=== PATIENT | male | born 1945 | race Caucasian/White ===

== ENCOUNTER 2018-03-10 22:44 | Inpatient (IN) | payer MEDICARE, OTHER ==
[~2018-03-10] VITALS: Ht 177.8 cm; Wt 125.8 kg
[2018-03-10] MEDS ORDERED: diltiazem 5mg/ml 5ml inj. IV ONE (23:05)
[2018-03-10] MEDS ORDERED: aspirin 81mg tab.chew PO ONE (23:05)
[2018-03-10 23:10] LABS: BASOPHILS # (AUTO) 0.1 X10'3 (0-0.2); BASOPHILS % (AUTO) 0.8 % (0-1); EOSINOPHILS # (AUTO) 0.2 X10'3 (0-0.9); EOSINOPHILS % (AUTO) 2.2 % (0-6); HEMATOCRIT 39.6 % (42.0-52.0); LYMPHOCYTES # (AUTO) 1.6 X10'3 (1.1-4.8); LYMPHOCYTES % (AUTO) 21.4 % (21-51); MEAN CORPUSCULAR HGB CONC 32.8 % (33.0-36.5); MEAN CORPUSCULAR VOLUME 91.8 FL (78-98); MONOCYTES # (AUTO) 0.4 X10'3 (0-0.9); MONOCYTES % (AUTO) 5.4 % (2-12); NEUTROPHILS # (AUTO) 5.3 X10'3 (1.8-7.7); NEUTROPHILS % (AUTO) 70.2 % (42-75); PLATELET COUNT 263 X10'3 (140-440); RED BLOOD COUNT 4.31 X10'6 (4.70-6.10); RED CELL DISTRIBUTION WIDTH 14.5 % (11.5-14.5); WHITE BLOOD COUNT 7.6 X10'3 (4.5-11.0)
[2018-03-10 23:19] LABS: D-DIMER 1.05 MG/L FEU (0-0.50); INR 1.1 INR; PARTIAL THROMBOPLASTIN TIME 25 SECONDS (22-32); PROTHROMBIN TIME 11.2 SECONDS (9.0-12.0)
[2018-03-10 23:20] LABS: ALANINE AMINOTRANSFERASE 28 U/L (12-78); ALBUMIN 3.2 G/DL (3.4-5.0); ALBUMIN/GLOBULIN RATIO 0.8 (1.1-1.5); ALKALINE PHOSPHATASE 60 IU/L (46-116); ANION GAP 6 (8-16); ASPARTATE AMINO TRANSFERASE 14 U/L (10-37); BILIRUBIN,TOTAL 0.4 MG/DL (0.1-1.0); BLOOD UREA NITROGEN 24 MG/DL (7-18); BUN/CREATININE RATIO 16.8 (5.4-32.0); CALCIUM 8.8 MG/DL (8.5-10.1); CHLORIDE 105 MMOL/L (99-107); CREATININE 1.43 MG/DL (0.60-1.10); GLUCOSE 130 MG/DL (70-104); POTASSIUM 3.8 MMOL/L (3.5-5.1); SODIUM 140 MMOL/L (135-145); TOTAL CARBON DIOXIDE 29.4 MMOL/L (24-32); TOTAL PROTEIN 7.1 G/DL (6.4-8.2); eGFR 49 ML/MIN
[2018-03-10] MEDS ORDERED: iohexol 350MG/ML 100ml bottle IV ONE (23:45)
[2018-03-11] VITALS (14 sets, daily range): BP systolic 131–178; BP diastolic 81–138
[2018-03-11] MEDS ORDERED: TEST200V10 IM (00:17)
[2018-03-11] MEDS ORDERED: PIOG45TA19 PO (00:17)
[2018-03-11] MEDS ORDERED: CELE-193 PO (00:17)
[2018-03-11] MEDS ORDERED: ASPI-1265 PO (00:17)
[2018-03-11] MEDS ORDERED: GLUC-131 PO (00:17)
[2018-03-11] MEDS ORDERED: MULT-933 PO (00:17)
[2018-03-11] MEDS ORDERED: SYN0.088T PO (00:17)
[2018-03-11] MEDS ORDERED: OMEP40CA37 PO (00:17)
[2018-03-11] MEDS ORDERED: LACT1CAP65 PO (00:17)
[2018-03-11] MEDS ORDERED: DOCU-28 PO (00:17)
[2018-03-11] MEDS ORDERED: ATOR40TA PO (00:17)
[2018-03-11] MEDS ORDERED: NITR100C6 PO (00:17)
[2018-03-11] MEDS ORDERED: CHOL100044 PO (00:17)
[2018-03-11] MEDS ORDERED: TRAM50TA2 PO (00:17)
[2018-03-11] MEDS ORDERED: diltiazem 5mg/ml 5ml inj. IV ONE (00:35)
[2018-03-11] MEDS ORDERED: diltiazem-NS 100mg/100ml 100 ML IV ONE (00:35)
[2018-03-11] MEDS ORDERED: potassium Cl 40MEQ/NS 500ml 500 ML IV PRN ×2 (01:40)
[2018-03-11] MEDS ORDERED: ondansetron/PF 4mg/2ml inj IV PRN (01:40)
[2018-03-11] MEDS ORDERED: magnesium Cl slow-release 64mg tablet PO PRN (01:40)
[2018-03-11] MEDS ORDERED: potassium Cl 20 mEq SR tablet PO PRN ×2 (01:40)
[2018-03-11] MEDS ORDERED: magnesium 1gm/100ml D5W IVPB 100 ML IV PRN (01:40)
[2018-03-11] MEDS ORDERED: magnesium 4gm in 100ml NS 100 ML IV PRN (01:40)
[2018-03-11] MEDS ORDERED: acetaminophen 325mg tablet PO PRN (01:40)
[2018-03-11] MEDS ORDERED: diltiazem-NS 100mg/100ml 100 ML IV SCH (01:40)
[2018-03-11 02:11] LABS: ETHANOL < 0.010 GM/DL (0.0-0.010)
[2018-03-11] MEDS ORDERED: dextrose ORAL solution 15 GM/59 ML bottle PO PRN ×2 (03:05)
[2018-03-11] MEDS ORDERED: diltiazem 30mg tablet PO ONE (03:05)
[2018-03-11] MEDS ORDERED: insulin Lispro (HumaLOG) vial - multi-dose SQ SCH (03:05)
[2018-03-11] MEDS ORDERED: dextrose 50%-water 50ml dispensing syringe IV PRN ×2 (03:05)
[2018-03-11] MEDS ORDERED: MESSAGE TO PHARMACY PO ONE (03:05)
[2018-03-11] MEDS ORDERED: glucagon, human recombinant 1mg kit SUBCUT PRN (03:05)
[2018-03-11] MEDS: normal saline 1000ml 1,000 ML IV SCH (03:41)
[2018-03-11] MEDS: diltiazem-NS 100mg/100ml 100 ML IV SCH ×3 (03:42→16:24)
[2018-03-11] MEDS: diltiazem 30mg tablet PO SCH ×3 (07:20→21:35)
[2018-03-11] MEDS: heparin, porcine 5000 units/ml vial SQ SCH ×2 (07:21→21:36)
[2018-03-11] MEDS: K and/or MAG REPLACEMENT MC SCH (08:00)
[2018-03-11] MEDS ORDERED: heparin, porcine 5000 units/ml vial SQ SCH (08:00)
[2018-03-11] MEDS: sotalol 80mg tablet PO SCH ×2 (11:37→21:35)
[2018-03-11] MEDS ORDERED: pioglitazone 45mg tablet PO SCH (11:55)
[2018-03-11] MEDS ORDERED: levoTHYROXINE 88mcg tablet PO SCH (11:55)
[2018-03-11] MEDS: furosemide 20 MG/2 ML vial IV SCH ×2 (12:08→21:36)
[2018-03-11] MEDS: aspirin 81mg tab.chew PO SCH (12:09)
[2018-03-11] MEDS: traMADol 50MG tablet PO PRN (12:09)
[2018-03-11] MEDS ORDERED: LEVO125T PO (12:17)
[2018-03-11] MEDS: potassium Cl 20 mEq SR tablet PO SCH (12:51)
[2018-03-11] MEDS: levoTHYROXINE 125mcg tablet PO SCH (12:52)
[2018-03-11] MEDS: nitrofuran/nitrofuran macrocrysal 100 MG capsule PO SCH (12:52)
[2018-03-11] MEDS: insulin glargine (Lantus) pen - multi-dose SQ SCH (21:00)
[2018-03-11] MEDS: Melatonin 3mg tablet PO PRN (23:17)
[2018-03-12] MEDS: diltiazem 30mg tablet PO SCH (02:20)
[2018-03-12 03:00] VITALS: BP 118/89
[2018-03-12 06:00] VITALS: BP 142/86
[2018-03-12 06:27] LABS: BASOPHILS # (AUTO) 0.1 X10'3 (0-0.2); BASOPHILS % (AUTO) 0.8 % (0-1); EOSINOPHILS # (AUTO) 0.2 X10'3 (0-0.9); EOSINOPHILS % (AUTO) 2.5 % (0-6); HEMATOCRIT 34.5 % (42.0-52.0); HEMOGLOBIN 11.5 g/dl (14.0-17.9); LYMPHOCYTES % (AUTO) 14.9 % (21-51); MEAN CORPUSCULAR HEMOGLOBIN 30.5 PG (27.0-31.0); MEAN CORPUSCULAR HGB CONC 33.3 % (33.0-36.5); MEAN CORPUSCULAR VOLUME 91.7 FL (78-98); MEAN PLATELET VOLUME 7.6 FL (7.4-10.4); MONOCYTES # (AUTO) 0.6 X10'3 (0-0.9); MONOCYTES % (AUTO) 8.1 % (2-12); NEUTROPHILS # (AUTO) 5.1 X10'3 (1.8-7.7); NEUTROPHILS % (AUTO) 73.7 % (42-75); PLATELET COUNT 228 X10'3 (140-440); RED BLOOD COUNT 3.76 X10'6 (4.70-6.10); RED CELL DISTRIBUTION WIDTH 15.2 % (11.5-14.5); WHITE BLOOD COUNT 6.9 X10'3 (4.5-11.0)
[2018-03-12 06:33] LABS: ALBUMIN 2.8 G/DL (3.4-5.0); ANION GAP 5 (8-16); BLOOD UREA NITROGEN 22 MG/DL (7-18); BUN/CREATININE RATIO 15.3 (5.4-32.0); CALCIUM 8.6 MG/DL (8.5-10.1); CHLORIDE 104 MMOL/L (99-107); CREATININE 1.44 MG/DL (0.60-1.10); GLUCOSE 122 MG/DL (70-104); MAGNESIUM 2.1 MG/DL (1.5-2.4); POTASSIUM 3.9 MMOL/L (3.5-5.1); SODIUM 137 MMOL/L (135-145); TOTAL CARBON DIOXIDE 28.1 MMOL/L (24-32); eGFR 48 ML/MIN
[2018-03-12] MEDS ORDERED: diltiazem CD 120mg capsule (once-daily) PO SCH (08:00)
[2018-03-12] MEDS: K and/or MAG REPLACEMENT MC SCH (08:00)
[2018-03-12] MEDS: celeCOXIB 100mg capsule PO SCH (08:06)
[2018-03-12] MEDS: aspirin 81mg tab.chew PO SCH (08:07)
[2018-03-12] MEDS: vitamin D (cholecalciferol) 1,000 unit tablet PO SCH (08:07)
[2018-03-12] MEDS: docusate sod 100mg capsule PO SCH (08:08)
[2018-03-12] MEDS: atorvastatin 20mg tablet PO SCH (08:08)
[2018-03-12] MEDS: furosemide 20 MG/2 ML vial IV SCH ×2 (08:09→20:01)
[2018-03-12] MEDS: heparin, porcine 5000 units/ml vial SQ SCH (08:10)
[2018-03-12] MEDS: sotalol 80mg tablet PO SCH ×2 (08:14→20:02)
[2018-03-12] MEDS: levoTHYROXINE 125mcg tablet PO SCH (08:15)
[2018-03-12] MEDS: traMADol 50MG tablet PO PRN (08:15)
[2018-03-12] MEDS: pantoprazole 40mg Tablet.DR PO SCH (08:15)
[2018-03-12] MEDS: potassium Cl 20 mEq SR tablet PO SCH (08:15)
[2018-03-12] MEDS: nitrofuran/nitrofuran macrocrysal 100 MG capsule PO SCH (08:16)
[2018-03-12] MEDS ORDERED: diltiazem CD 120mg capsule (once-daily) PO ONE (08:45)
[2018-03-12 11:00] VITALS: BP 130/92
[2018-03-12 15:00] VITALS: BP 139/83
[2018-03-12 19:00] VITALS: BP 137/74
[2018-03-12] MEDS: apixaban 5mg tablet PO SCH (20:02)
[2018-03-12] MEDS: insulin glargine (Lantus) pen - multi-dose SQ SCH (21:00)
[2018-03-12] MEDS: Melatonin 3mg tablet PO PRN (21:15)
[2018-03-12 23:00] VITALS: BP 151/87
[2018-03-13] MEDS: normal saline 1000ml 1,000 ML IV SCH (00:40)
[2018-03-13 03:00] VITALS: BP 142/96
[2018-03-13 06:00] VITALS: BP 136/78
[2018-03-13 06:29] LABS: BASOPHILS # (AUTO) 0.1 X10'3 (0-0.2); BASOPHILS % (AUTO) 1.1 % (0-1); EOSINOPHILS # (AUTO) 0.2 X10'3 (0-0.9); EOSINOPHILS % (AUTO) 4.3 % (0-6); HEMATOCRIT 37.7 % (42.0-52.0); HEMOGLOBIN 12.6 g/dl (14.0-17.9); LYMPHOCYTES # (AUTO) 1.3 X10'3 (1.1-4.8); LYMPHOCYTES % (AUTO) 23.5 % (21-51); MEAN CORPUSCULAR HEMOGLOBIN 30.4 PG (27.0-31.0); MEAN CORPUSCULAR HGB CONC 33.4 % (33.0-36.5); MEAN CORPUSCULAR VOLUME 91.1 FL (78-98); MEAN PLATELET VOLUME 7.8 FL (7.4-10.4); MONOCYTES # (AUTO) 0.6 X10'3 (0-0.9); MONOCYTES % (AUTO) 9.7 % (2-12); NEUTROPHILS # (AUTO) 3.5 X10'3 (1.8-7.7); NEUTROPHILS % (AUTO) 61.4 % (42-75); PLATELET COUNT 248 X10'3 (140-440); RED BLOOD COUNT 4.14 X10'6 (4.70-6.10); RED CELL DISTRIBUTION WIDTH 14.8 % (11.5-14.5); WHITE BLOOD COUNT 5.7 X10'3 (4.5-11.0)
[2018-03-13 06:50] LABS: ALBUMIN 2.9 G/DL (3.4-5.0); ANION GAP 8 (8-16); BLOOD UREA NITROGEN 28 MG/DL (7-18); CALCIUM 8.6 MG/DL (8.5-10.1); CHLORIDE 104 MMOL/L (99-107); CREATININE 1.47 MG/DL (0.60-1.10); GLUCOSE 100 MG/DL (70-104); MAGNESIUM 2.2 MG/DL (1.5-2.4); SODIUM 139 MMOL/L (135-145); TOTAL CARBON DIOXIDE 27.5 MMOL/L (24-32); eGFR 47 ML/MIN
[2018-03-13] MEDS: K and/or MAG REPLACEMENT MC SCH (07:43)
[2018-03-13] MEDS: celeCOXIB 100mg capsule PO SCH (07:53)
[2018-03-13] MEDS: apixaban 5mg tablet PO SCH (07:54)
[2018-03-13] MEDS: potassium Cl 20 mEq SR tablet PO SCH (07:54)
[2018-03-13] MEDS: atorvastatin 20mg tablet PO SCH (07:54)
[2018-03-13] MEDS: levoTHYROXINE 125mcg tablet PO SCH (07:54)
[2018-03-13] MEDS: docusate sod 100mg capsule PO SCH (07:54)
[2018-03-13] MEDS: sotalol 80mg tablet PO SCH (07:54)
[2018-03-13] MEDS: nitrofuran/nitrofuran macrocrysal 100 MG capsule PO SCH (07:54)
[2018-03-13] MEDS: vitamin D (cholecalciferol) 1,000 unit tablet PO SCH (07:54)
[2018-03-13] MEDS: pantoprazole 40mg Tablet.DR PO SCH (07:54)
[2018-03-13] MEDS: aspirin 81mg tab.chew PO SCH (07:54)
[2018-03-13] MEDS: furosemide 20 MG/2 ML vial IV SCH (07:55)
[2018-03-13] MEDS ORDERED: diltiazem CD 120mg capsule (once-daily) PO SCH (08:00)
[2018-03-13] MEDS: traMADol 50MG tablet PO PRN (08:09)
[2018-03-13 11:00] VITALS: BP 136/95
[2018-03-13] MEDS ORDERED: CARCD120C PO (12:09)
[2018-03-13] MEDS ORDERED: POTA20TA19 PO (12:09)
[2018-03-13] MEDS ORDERED: SOTA80TA73 PO (12:09)
[2018-03-13] MEDS ORDERED: APIX5TAB3 PO (12:09)
[2018-03-13] MEDS ORDERED: FURO-149 PO (12:09)
== END 2018-03-13 14:25 | disposition home or self-care (01) | DRG 682 ==
LOC: ER 22:45 → ED HOLD 03-11 01:38 → PCU 3S 03-11 03:00
PROVIDERS: ADMIT Internal Medicine; ATTEND Family Medicine
PROC: B32T1ZZ Computerized Tomography (CT Scan) of Left Pulmonary Artery using Low Osmolar Contrast (ICD-10-PCS; principal; 2018-03-10)
PROC: B3201ZZ Computerized Tomography (CT Scan) of Thoracic Aorta using Low Osmolar Contrast (ICD-10-PCS; 2018-03-10)
PROC: B32S1ZZ Computerized Tomography (CT Scan) of Right Pulmonary Artery using Low Osmolar Contrast (ICD-10-PCS; 2018-03-10)
DX: N17.9 Acute kidney failure, unspecified (principal); I50.33 Acute on chronic diastolic (congestive) heart failure; I13.0 Hypertensive heart and chronic kidney disease with heart failure and stage 1 through stage 4 chronic kidney disease, or unspecified chronic kidney disease; I48.91 Unspecified atrial fibrillation; E03.9 Hypothyroidism, unspecified; K21.9 Gastro-esophageal reflux disease without esophagitis; M54.9 Dorsalgia, unspecified; R33.9 Retention of urine, unspecified; E78.5 Hyperlipidemia, unspecified; E11.22 Type 2 diabetes mellitus with diabetic chronic kidney disease; G89.29 Other chronic pain; N18.9 Chronic kidney disease, unspecified; Z88.5 Allergy status to narcotic agent; Z79.01 Long term (current) use of anticoagulants; Z79.82 Long term (current) use of aspirin; Z79.899 Other long term (current) drug therapy; Z87.891 Personal history of nicotine dependence
CPT/HCPCS: 36415; 71045; 71275; 80048; 80053; 80320; 82948; 83036; 83735; 83880; 84443; 84484; 85025; 85379; 85610; 85730; 87070; 93005; 93306; 96374; 96376; 99291; A4353; J1644; J1815; J1940; J3490; J7030; Q9967

== ENCOUNTER 2018-04-16 06:47 | Day surgery (SDC) | payer MEDICARE ==
[2018-04-15 09:02] LABS: BASOPHILS # (AUTO) 0.1 X10'3 (0-0.2); BASOPHILS % (AUTO) 1.3 % (0-1); EOSINOPHILS # (AUTO) 0.2 X10'3 (0-0.9); EOSINOPHILS % (AUTO) 3.7 % (0-6); HEMATOCRIT 41.9 % (42.0-52.0); HEMOGLOBIN 14.1 g/dl (14.0-17.9); LYMPHOCYTES # (AUTO) 1.4 X10'3 (1.1-4.8); LYMPHOCYTES % (AUTO) 25.9 % (21-51); MEAN CORPUSCULAR HEMOGLOBIN 30.4 PG (27.0-31.0); MEAN CORPUSCULAR HGB CONC 33.6 % (33.0-36.5); MEAN CORPUSCULAR VOLUME 90.5 FL (78-98); MEAN PLATELET VOLUME 7.8 FL (7.4-10.4); MONOCYTES # (AUTO) 0.5 X10'3 (0-0.9); NEUTROPHILS # (AUTO) 3.1 X10'3 (1.8-7.7); NEUTROPHILS % (AUTO) 59.1 % (42-75); PLATELET COUNT 204 X10'3 (140-440); RED BLOOD COUNT 4.64 X10'6 (4.70-6.10); WHITE BLOOD COUNT 5.3 X10'3 (4.5-11.0)
[2018-04-15 09:14] LABS: ALBUMIN 3.5 G/DL (3.4-5.0); ANION GAP 4 (8-16); BLOOD UREA NITROGEN 28 MG/DL (7-18); CHLORIDE 104 MMOL/L (99-107); GLUCOSE 85 MG/DL (70-104); INR 1.1 INR; PROTHROMBIN TIME 11.3 SECONDS (9.0-12.0); SODIUM 139 MMOL/L (135-145); TOTAL CARBON DIOXIDE 31.3 MMOL/L (24-32); eGFR 50 ML/MIN
[2018-04-15 09:15] LABS: CALCIUM 9.7 MG/DL (8.5-10.1)
[2018-04-16] VITALS (15 sets, daily range): BP systolic 116–154; BP diastolic 58–91
[~2018-04-16] VITALS: Ht 177.8 cm; Wt 122.4 kg
[~2018-04-16 06:47] MED LIST: APIX5TAB3 PO; ASPI-1265 PO; ATOR40TA PO; CARCD120C PO; CELE-193 PO; CHOL100044 PO; DOCU-28 PO; FURO-149 PO; GLUC-131 PO; LACT1CAP65 PO; LEVO125T PO; MULT-933 PO; NITR100C6 PO; OMEP40CA37 PO; PIOG45TA19 PO; SOTA80TA73 PO; TEST200V10 IM; TRAM50TA2 PO
[2018-04-16] MEDS ORDERED: atropine 0.1mg/ml 10ml syringe IV ONE (07:00)
[2018-04-16] MEDS ORDERED: diphenhydrAMINE 25mg capsule PO ONE (07:00)
[2018-04-16] MEDS ORDERED: LORazepam 0.5 MG tablet PO ONE (07:00)
[2018-04-16] MEDS ORDERED: amiodarone in dextrose, iso-osm 150mg/100ml bag IV ONE (07:00)
[2018-04-16] MEDS ORDERED: normal saline 1000ml 1,000 ML IV SCH (07:00)
[2018-04-16] MEDS ORDERED: morphine 10mg/ml inj. IV ONE (07:00)
[2018-04-16] MEDS ORDERED: MIDAZolam 5mg/ml 2ml vial IV ONE (07:00)
[2018-04-16] MEDS ORDERED: POTA10TA19 PO (07:26)
[2018-04-16] MEDS ORDERED: APIX5TAB3 PO (07:26)
[2018-04-16] MEDS ORDERED: SOTA80TA73 PO (07:26)
[2018-04-16] MEDS ORDERED: CARSR60C PO (07:26)
[2018-04-16] MEDS ORDERED: FURO40TA4 PO (07:26)
== END 2018-04-16 11:25 | disposition home or self-care (01) ==
LOC: SSTAY O 06:47
PROVIDERS: ATTEND Internal Medicine Cardiovascular Disease
DX: I48.1 Persistent atrial fibrillation (principal); E11.9 Type 2 diabetes mellitus without complications; E78.5 Hyperlipidemia, unspecified; G47.33 Obstructive sleep apnea (adult) (pediatric); E66.9 Obesity, unspecified; I11.0 Hypertensive heart disease with heart failure; I50.9 Heart failure, unspecified; E03.9 Hypothyroidism, unspecified; G89.29 Other chronic pain; K21.9 Gastro-esophageal reflux disease without esophagitis; I34.0 Nonrheumatic mitral (valve) insufficiency; I27.20 Pulmonary hypertension, unspecified; M19.90 Unspecified osteoarthritis, unspecified site; H54.62 Unqualified visual loss, left eye, normal vision right eye; F32.9 Major depressive disorder, single episode, unspecified; Z87.891 Personal history of nicotine dependence; Z90.49 Acquired absence of other specified parts of digestive tract; Z79.891 Long term (current) use of opiate analgesic; Z88.5 Allergy status to narcotic agent; Z68.38 Body mass index [BMI] 38.0-38.9, adult; Z79.01 Long term (current) use of anticoagulants; Z87.440 Personal history of urinary (tract) infections; Z79.82 Long term (current) use of aspirin; Z98.890 Other specified postprocedural states; Z79.899 Other long term (current) drug therapy; Z81.2 Family history of tobacco abuse and dependence; Z82.49 Family history of ischemic heart disease and other diseases of the circulatory system
CPT/HCPCS: 36415; 80048; 82948; 85025; 85610; 92960; 93005; J0282; J2250; J2270; J7030; Q0163; A4620; J0461

== ENCOUNTER 2018-07-03 10:05 | Day surgery (SDC) | payer MEDICARE ==
[2018-07-02 10:19] LABS: BASOPHILS % (AUTO) 0.6 % (0-1); EOSINOPHILS # (AUTO) 0.2 X10'3 (0-0.9); EOSINOPHILS % (AUTO) 3.7 % (0-6); HEMATOCRIT 41.7 % (42.0-52.0); HEMOGLOBIN 13.6 g/dl (14.0-17.9); LYMPHOCYTES # (AUTO) 1.2 X10'3 (1.1-4.8); LYMPHOCYTES % (AUTO) 22.6 % (21-51); MEAN CORPUSCULAR HGB CONC 32.6 % (33.0-36.5); MEAN PLATELET VOLUME 7.6 FL (7.4-10.4); MONOCYTES # (AUTO) 0.5 X10'3 (0-0.9); MONOCYTES % (AUTO) 9.4 % (2-12); NEUTROPHILS # (AUTO) 3.5 X10'3 (1.8-7.7); NEUTROPHILS % (AUTO) 63.7 % (42-75); PLATELET COUNT 191 X10'3 (140-440); RED BLOOD COUNT 4.53 X10'6 (4.70-6.10); RED CELL DISTRIBUTION WIDTH 16.7 % (11.5-14.5); WHITE BLOOD COUNT 5.4 X10'3 (4.5-11.0)
[2018-07-02 10:31] LABS: ALBUMIN 3.6 G/DL (3.4-5.0); ANION GAP 5 (8-16); BLOOD UREA NITROGEN 26 MG/DL (7-18); BUN/CREATININE RATIO 16.9 (5.4-32.0); CHLORIDE 104 MMOL/L (99-107); CREATININE 1.54 MG/DL (0.60-1.10); GLUCOSE 93 MG/DL (70-104); SODIUM 140 MMOL/L (135-145); TOTAL CARBON DIOXIDE 31.1 MMOL/L (24-32); eGFR 45 ML/MIN
[2018-07-02 10:42] LABS: INR 1.1 INR; PROTHROMBIN TIME 11.5 SECONDS (9.0-12.0)
[2018-07-03] VITALS (10 sets, daily range): BP systolic 107–164; BP diastolic 52–87
[~2018-07-03] VITALS: Ht 177.8 cm; Wt 124.6 kg
[~2018-07-03 10:05] MED LIST changes: -CARCD120C PO; +CARSR60C PO; -FURO-149 PO; +FURO40TA4 PO; +POTA10TA19 PO
[2018-07-03] MEDS ORDERED: atropine 0.1mg/ml 10ml syringe IV ONE (10:40)
[2018-07-03] MEDS ORDERED: MIDAZolam 5mg/ml 2ml vial IV ONE (10:40)
[2018-07-03] MEDS ORDERED: diphenhydrAMINE 25mg capsule PO ONE (10:40)
[2018-07-03] MEDS ORDERED: LORazepam 0.5 MG tablet PO ONE (10:40)
[2018-07-03] MEDS ORDERED: normal saline 1000ml 1,000 ML IV SCH (10:40)
[2018-07-03] MEDS ORDERED: fentaNYL/PF 50MCG/1 ML 2ML syringe IV ONE (10:40)
[2018-07-03] MEDS ORDERED: amiodarone in dextrose, iso-osm 150mg/100ml bag IV ONE (10:40)
[2018-07-03] MEDS ORDERED: CHOL100046 PO (11:55)
[2018-07-03] MEDS ORDERED: AMIO200T40 PO (11:58)
== END 2018-07-03 16:15 | disposition home or self-care (01) ==
LOC: SSTAY O 10:05
PROVIDERS: ATTEND Internal Medicine Cardiovascular Disease
DX: I48.1 Persistent atrial fibrillation (principal); E11.9 Type 2 diabetes mellitus without complications; E78.5 Hyperlipidemia, unspecified; E66.9 Obesity, unspecified; G47.33 Obstructive sleep apnea (adult) (pediatric); I45.2 Bifascicular block; E03.9 Hypothyroidism, unspecified; G89.29 Other chronic pain; K21.9 Gastro-esophageal reflux disease without esophagitis; I34.0 Nonrheumatic mitral (valve) insufficiency; I11.0 Hypertensive heart disease with heart failure; I50.32 Chronic diastolic (congestive) heart failure; I27.21 Secondary pulmonary arterial hypertension; M19.90 Unspecified osteoarthritis, unspecified site; H54.62 Unqualified visual loss, left eye, normal vision right eye; H91.8X3 Other specified hearing loss, bilateral; Z87.440 Personal history of urinary (tract) infections; Z88.5 Allergy status to narcotic agent; Z79.891 Long term (current) use of opiate analgesic; Z79.01 Long term (current) use of anticoagulants; Z79.82 Long term (current) use of aspirin; Z68.39 Body mass index [BMI] 39.0-39.9, adult; Z86.59 Personal history of other mental and behavioral disorders; Z87.891 Personal history of nicotine dependence; Z90.49 Acquired absence of other specified parts of digestive tract; Z79.899 Other long term (current) drug therapy; Z98.890 Other specified postprocedural states; Z81.2 Family history of tobacco abuse and dependence; Z82.49 Family history of ischemic heart disease and other diseases of the circulatory system
CPT/HCPCS: 36415; 80048; 85025; 85610; 92960; 93005; J0282; J0461; J2250; J3010; J7030

== ENCOUNTER 2018-08-27 00:29 | Outpatient (CLI) | payer MEDICARE ==
[~2018-08-27 00:29] MED LIST changes: +AMIO200T40 PO; -CHOL100044 PO; +CHOL100046 PO; -SOTA80TA73 PO
== END 2018-08-27 23:59 | disposition home or self-care (01) ==
LOC: DIABETIC 00:29
PROVIDERS: ATTEND Family Medicine
DX: E11.9 Type 2 diabetes mellitus without complications (principal); E66.9 Obesity, unspecified; Z79.899 Other long term (current) drug therapy; Z88.5 Allergy status to narcotic agent; Z79.82 Long term (current) use of aspirin
CPT/HCPCS: G0108

== ENCOUNTER 2020-09-22 05:56 | Day surgery (SDC) | payer MEDICARE ==
[2020-09-21 10:37] LABS: BASOPHILS # (AUTO) 0.1 X10'3 (0-0.2); BASOPHILS % (AUTO) 1.6 % (0-1); EOSINOPHILS # (AUTO) 0.2 X10'3 (0-0.9); EOSINOPHILS % (AUTO) 4.5 % (0-6); HEMATOCRIT 38.4 % (42.0-52.0); HEMOGLOBIN 12.3 g/dl (14.0-17.9); LYMPHOCYTES # (AUTO) 1.1 X10'3 (1.1-4.8); LYMPHOCYTES % (AUTO) 25.5 % (21-51); MEAN CORPUSCULAR HEMOGLOBIN 27.5 PG (27.0-31.0); MEAN CORPUSCULAR HGB CONC 32.2 g/dL (33.0-36.5); MEAN CORPUSCULAR VOLUME 85.4 FL (78-98); MEAN PLATELET VOLUME 7.1 FL (7.4-10.4); MONOCYTES # (AUTO) 0.3 X10'3 (0-0.9); MONOCYTES % (AUTO) 7.2 % (2-12); NEUTROPHILS # (AUTO) 2.5 X10'3 (1.8-7.7); NEUTROPHILS % (AUTO) 61.2 % (42-75); PLATELET COUNT 246 X10'3 (140-440); RED BLOOD COUNT 4.49 X10'6 (4.70-6.10); RED CELL DISTRIBUTION WIDTH 22.9 % (11.5-14.5); WHITE BLOOD COUNT 4.2 X10'3 (4.5-11.0)
[2020-09-21 10:47] LABS: PARTIAL THROMBOPLASTIN TIME 26 SECONDS (22-32)
[2020-09-21 10:50] LABS: ALBUMIN 3.5 G/DL (3.4-5.0); ANION GAP 6 (8-16); BLOOD UREA NITROGEN 25 MG/DL (7-18); BUN/CREATININE RATIO 18.9 (5.4-32.0); CALCIUM 9.5 MG/DL (8.5-10.1); CHLORIDE 105 MMOL/L (99-107); CREATININE 1.32 MG/DL (0.60-1.10); GLUCOSE 96 MG/DL (70-104); SODIUM 142 MMOL/L (135-145); TOTAL CARBON DIOXIDE 31.5 MMOL/L (24-32); eGFR 53 ML/MIN
[2020-09-21 11:00] LABS: ANISOCYTOSIS 3+; PLATELET ESTIMATE NORMAL
[2020-09-21 11:01] LABS: ELLIPTOCYTES FEW; TEAR DROP CELLS FEW
[~2020-09-22] VITALS: Ht 180.3 cm; Wt 115.0 kg
[2020-09-22] VITALS (13 sets, daily range): BP systolic 134–177; BP diastolic 65–95
[~2020-09-22 05:56] MED LIST changes: -AMIO200T40 PO; +AMIO200T61 PO; +OMEP40CA13 PO; -OMEP40CA37 PO; -PIOG45TA19 PO; +PIOG45TA64 PO
[2020-09-22] MEDS ORDERED: diphenhydrAMINE 25mg capsule PO PRN (06:20)
[2020-09-22] MEDS ORDERED: LORazepam 0.5 MG tablet PO PRN (06:20)
[2020-09-22] MEDS ORDERED: sodium bicarbonate (8.4%) inj. 150 ML in dextrose 5%-water 1,000 ML IV ONE (06:20)
[2020-09-22] MEDS ORDERED: DILT30TA10 PO (06:27)
[2020-09-22] MEDS ORDERED: HYDR-4069 PO (06:27)
[2020-09-22] MEDS ORDERED: OMEP20CA15 PO (06:27)
[2020-09-22] MEDS ORDERED: MULT-1085 PO (06:30)
[2020-09-22] MEDS ORDERED: ATOR40TA PO (06:30)
[2020-09-22] MEDS ORDERED: DOCU-148 PO (06:30)
[2020-09-22] MEDS ORDERED: VIT1CAPS9 PO (06:30)
[2020-09-22] MEDS ORDERED: verapamil 2.5 mg/ml inj IV ONE (07:31)
[2020-09-22] MEDS ORDERED: fentaNYL/PF 50MCG/1 ML 2ML syringe ONE (07:31)
[2020-09-22] MEDS ORDERED: iohexol 350 MG/ML 50ML vial IV ONE ×2 (07:31→08:52)
[2020-09-22] MEDS ORDERED: heparin 1,000unit/ml 10ml vial 10 ML ONE (07:31)
[2020-09-22] MEDS ORDERED: iohexol 350MG/ML 100ml bottle IV ONE ×2 (07:31→09:13)
[2020-09-22] MEDS ORDERED: midazolam 2 mg/2 ml injection ONE (07:31)
[2020-09-22] MEDS ORDERED: LIDOcaine 1% (10mg/ml)w/preservative injection 20ml MDV ONE (07:31)
[2020-09-22] MEDS ORDERED: nitroGLYCERIN-Tridil 50MG/D5W 250 ML IV ONE (07:32)
[2020-09-22] MEDS ORDERED: acetylcysteine 200 MG/ml 4ml vial PO SCH (08:00)
[2020-09-22 08:57] LABS: ISTAT HGB ART 12.2 g/dl (14.0-18.0); ISTAT Hct ART 36 %PCV (42-52); ISTAT O2 SATURATION ARTERIAL 99 % (95-98); ISTAT SOURCE ART
[2020-09-22] MEDS ORDERED: heparin 1,000 UNITS/NS 500ml 500 ML ONE (09:20)
[2020-09-22] MEDS ORDERED: heparin 25,000 UNIT/250ml bag 250 ML IV ONE (09:34)
[2020-09-22] MEDS ORDERED: morphine 2 MG/ML inj. syringe IV PRN (10:25)
[2020-09-22] MEDS ORDERED: cyclobenzaprine 10mg tablet PO PRN (10:25)
[2020-09-22] MEDS: acetylcysteine 200 MG/ml 4ml vial PO SCH ×2 (10:48→16:24)
--- NOTE | 2020-09-22 11:15 | NUR ---
Pt ate 100% of breakfast tray. Drank 350ml oral intake. VS stable as charted.Will continue to monitor.
== END 2020-09-22 17:05 | disposition home or self-care (01) ==
LOC: SSTAY O 05:56
PROVIDERS: ATTEND Internal Medicine Cardiovascular Disease
DX: R94.39 Abnormal result of other cardiovascular function study (principal); I25.10 Atherosclerotic heart disease of native coronary artery without angina pectoris; I77.819 Aortic ectasia, unspecified site; E11.9 Type 2 diabetes mellitus without complications; E78.5 Hyperlipidemia, unspecified; G47.30 Sleep apnea, unspecified; I48.91 Unspecified atrial fibrillation; E03.9 Hypothyroidism, unspecified; I11.0 Hypertensive heart disease with heart failure; I50.9 Heart failure, unspecified; I27.20 Pulmonary hypertension, unspecified; E66.9 Obesity, unspecified; Z68.35 Body mass index [BMI] 35.0-35.9, adult; Z79.01 Long term (current) use of anticoagulants; Z87.891 Personal history of nicotine dependence; Z79.899 Other long term (current) drug therapy
CPT/HCPCS: 36415; 76937; 80048; 82803; 85014; 85025; 85610; 85730; 93005; 93460; 93567; 99152; 99153; C1751; C1769; C1894; J1644; J2001; J2250; J2270; J3010; Q0163; Q9967; 85008; A5120; A6258; J3490

== ENCOUNTER 2020-10-13 09:04 | Day surgery (SDC) | payer MEDICARE ==
[2020-10-12 09:25] LABS: BASOPHILS # (AUTO) 0.1 X10'3 (0-0.2); BASOPHILS % (AUTO) 1.1 % (0-1); EOSINOPHILS # (AUTO) 0.1 X10'3 (0-0.9); EOSINOPHILS % (AUTO) 2.6 % (0-6); HEMATOCRIT 39.4 % (42.0-52.0); HEMOGLOBIN 12.9 g/dl (14.0-17.9); LYMPHOCYTES # (AUTO) 1.5 X10'3 (1.1-4.8); LYMPHOCYTES % (AUTO) 27.5 % (21-51); MEAN CORPUSCULAR HEMOGLOBIN 28.7 PG (27.0-31.0); MEAN CORPUSCULAR HGB CONC 32.7 g/dL (33.0-36.5); MEAN CORPUSCULAR VOLUME 87.7 FL (78-98); MEAN PLATELET VOLUME 7.2 FL (7.4-10.4); MONOCYTES # (AUTO) 0.6 X10'3 (0-0.9); MONOCYTES % (AUTO) 11.4 % (2-12); NEUTROPHILS # (AUTO) 3.2 X10'3 (1.8-7.7); NEUTROPHILS % (AUTO) 57.4 % (42-75); PLATELET COUNT 250 X10'3 (140-440); RED BLOOD COUNT 4.49 X10'6 (4.70-6.10); RED CELL DISTRIBUTION WIDTH 21.3 % (11.5-14.5); WHITE BLOOD COUNT 5.6 X10'3 (4.5-11.0)
[2020-10-12 09:32] LABS: ALBUMIN 3.5 G/DL (3.4-5.0); ANION GAP 8 (8-16); BLOOD UREA NITROGEN 21 MG/DL (7-18); BUN/CREATININE RATIO 17.8 (5.4-32.0); CALCIUM 9.3 MG/DL (8.5-10.1); CHLORIDE 104 MMOL/L (99-107); CREATININE 1.18 MG/DL (0.60-1.10); GLUCOSE 93 MG/DL (70-104); POTASSIUM 4.1 MMOL/L (3.5-5.1); SODIUM 141 MMOL/L (135-145); TOTAL CARBON DIOXIDE 29.4 MMOL/L (24-32); eGFR 60 ML/MIN
[2020-10-12 09:35] LABS: PARTIAL THROMBOPLASTIN TIME 26 SECONDS (22-32)
[2020-10-12 09:42] LABS: ANISOCYTOSIS 3+; ELLIPTOCYTES FEW; PLATELET ESTIMATE NORMAL
[2020-10-12 09:44] LABS: MICROCYTOSIS 1+
[2020-10-12 09:45] LABS: SCHISTOCYTES FEW
[~2020-10-13] VITALS: Ht 180.3 cm; Wt 117.6 kg
[2020-10-13] VITALS (14 sets, daily range): BP systolic 126–176; BP diastolic 66–106
[~2020-10-13 09:04] MED LIST changes: -APIX5TAB3 PO; -ASPI-1265 PO; -CARSR60C PO; -CELE-193 PO; -CHOL100046 PO; +DILT30TA10 PO; +DOCU-148 PO; -DOCU-28 PO; -GLUC-131 PO; +HYDR-4069 PO; -LACT1CAP65 PO; +MULT-1085 PO; -MULT-933 PO; +OMEP20CA15 PO; -OMEP40CA13 PO; +VIT1CAPS9 PO
[2020-10-13] MEDS ORDERED: diphenhydrAMINE 25mg capsule PO PRN (09:25)
[2020-10-13] MEDS ORDERED: LORazepam 0.5 MG tablet PO PRN (09:25)
[2020-10-13] MEDS ORDERED: sodium bicarbonate (8.4%) inj. 150 ML in dextrose 5%-water 1,000 ML IV ONE (09:25)
[2020-10-13] MEDS ORDERED: LIDOcaine/PRILOcaine 5gm cream TP ONE (09:25)
[2020-10-13] MEDS ORDERED: normal saline 1,000 ML IV SCH (10:35)
[2020-10-13] MEDS ORDERED: FERR324T4 PO (10:55)
[2020-10-13] MEDS ORDERED: AMIO100T4 PO (10:55)
[2020-10-13] MEDS ORDERED: fentaNYL/PF 50MCG/1 ML 2ML syringe ONE (11:01)
[2020-10-13] MEDS ORDERED: verapamil 2.5 mg/ml inj IV ONE (11:01)
[2020-10-13] MEDS ORDERED: midazolam 1 mg/ML 2ml injection ONE (11:01)
[2020-10-13] MEDS ORDERED: nitroGLYCERIN-Tridil 50MG/D5W 250 ML IV ONE (11:02)
[2020-10-13] MEDS ORDERED: heparin 1,000unit/ml 10ml vial 10 ML ONE ×2 (11:02→13:19)
[2020-10-13] MEDS ORDERED: iohexol 350 MG/1 ML 200ml bottle ONE (11:02)
[2020-10-13] MEDS ORDERED: LIDOcaine 1% (10mg/ml)w/preservative injection 20ml MDV ONE (11:02)
[2020-10-13] MEDS ORDERED: heparin 25,000 UNIT/250ml bag 250 ML IV ONE (12:08)
[2020-10-13] MEDS ORDERED: iohexol 350MG/ML 100ml bottle IV ONE ×2 (12:46→13:05)
[2020-10-13] MEDS ORDERED: clopidogrel 300mg tablet ONE (13:20)
[2020-10-13] MEDS ORDERED: hydrALAZINE 25 MG tablet PO ONE (19:15)
== END 2020-10-13 19:52 | disposition home or self-care (01) ==
LOC: SSTAY O 09:04
PROVIDERS: ATTEND Internal Medicine Cardiovascular Disease
DX: I25.10 Atherosclerotic heart disease of native coronary artery without angina pectoris (principal); E78.5 Hyperlipidemia, unspecified; I48.91 Unspecified atrial fibrillation; I27.20 Pulmonary hypertension, unspecified; I11.0 Hypertensive heart disease with heart failure; I50.9 Heart failure, unspecified; E11.9 Type 2 diabetes mellitus without complications; G47.30 Sleep apnea, unspecified; E66.9 Obesity, unspecified; Z68.36 Body mass index [BMI] 36.0-36.9, adult; Z79.899 Other long term (current) drug therapy
CPT/HCPCS: 36415; 76937; 80048; 82948; 85025; 85347; 85610; 85730; 92920; 93005; 99152; 99153; C1725; C1751; C1769; C1874; C1894; C9600; J1644; J2001; J2250; J3010; J7030; Q0163; Q9967; 85008; A4620; A5120; J3490